=== PATIENT | male | born 2000 | race Caucasian/White ===

== ENCOUNTER 2021-07-11 19:52 | Emergency (ER) | payer BC, OTHER ==
[~2021-07-11] VITALS: Ht 180.3 cm; Wt 64.4 kg
--- NOTE | 2021-07-11 20:04 | ED Fall/Injury ---
General Chief Complaint: Trauma-Non Activation Stated Complaint: LOWER BACK PAIN History of Present Illness Date Seen by Provider: Jul 11, 2021 Time Seen by Provider: 19:58 Initial Comments 20-year-old male presents with mid low back pain. 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 Patient was bucked off his horse and landed flat on his back. He has what he feels like a "mild hot fork in the middle of his back. He denies any numbness, tingling, loss of movement or bowel or bladd er issues. Patient denies any other injury. Allergies and Home Medications Patient Home Medication List Home Medication List Reviewed: Yes Review of Systems Review of Systems Constitutional: no symptoms reported Eyes: No Symptoms Reported Respiratory: no symptoms reported Cardiovascular: no symptoms reported Gastrointestinal: no symptoms reported Genitourinary: no symptoms reported Musculoskeletal: see HPI, back pain Skin: no symptoms reported Psychiatric/Neurological: No Symptoms Reported Physical Exam Vital Signs Vital Signs - First Documented 07/11/21 19:52 Temp 36.6 Pulse 75 Resp 18 B/P (MAP) 116/69 (85) Pulse Ox 100 O2 Delivery Room Air Capillary Refill : Height, Weight, BMI Height: '" Weight: lbs. oz. kg; BMI Method: General Appearance: WD/WN, no apparent distress Neck: non-tender, full range of motion, supple Cardiovascular: normal peripheral pulses, regular rate, rhythm Respiratory: lungs clear, normal breath sounds, no respiratory distress Gastrointestinal: non tender, soft Back: vertebral tenderness (Mild midline tenderness in the lumbar region, no step-off or obvious injury on palpitation) Extremities: normal range of motion, non-tender Neurologic/Psychiatric: alert, normal mood/affect, oriented x 3; No motor weakness, No sensory deficit Skin: normal color, warm/dry Progress/Results/Core Measures Results/Orders My Orders Orders - AFUA LARA DO Ct Head Wo (07/11/21 19:59) Ct Lumbar Spine Wo (07/11/21 20:07) Vital Signs/I&O 07/11/21 19:52 Temp 36.6 Pulse 75 Resp 18 B/P (MAP) 116/69 (85) Pulse Ox 100 O2 Delivery Room Air Progress Progress Note : Progress Note Patient with negative imaging of the lumbar back. Patient no acute fractures. Patient with likely contusion due to the fall. Patient stable on discharge Departure Impression Primary Impression: Lumbar contusion Qualified Codes: S30.0XXA - Contusion of lower back and pelvis, initial encounter Disposition: 01 HOME, SELF-CARE Condition: Stable Departure-Patient Inst. Patient Instructions: Back Precautions, Contusion (DC), Low Back Pain ED Add. Discharge Instructions: Tylenol or ibuprofen as needed for pain 4% topical lidocaine with menthol, cream gel or patch take as directed on package All discharge instructions reviewed with patient and/or family. Voiced understanding. AFUA LARA DO Jul 11, 2021 20:04
--- NOTE | 2021-07-11 20:54 | Diagnostic Imaging Report ---
PROCEDURE: CT lumbar spine without contrast. TECHNIQUE: Multiple contiguous axial images were obtained through the lumbar spine without the use of intravenous contrast. Sagittal and coronal reformations were then performed. Auto Exposure Controls were utilized during the CT exam to meet ALARA standards for radiation dose reduction. INDICATION: Injury with back pain. COMPARISON: None. FINDINGS: There is transitional anatomy with partial sacralization of the L5 segment with a rudimentary L5-S1 disc. Lumbar statures are normal, the alignment anatomic. No lumbar fracture or paraspinal hemorrhage. No hyperdense epidural hematoma. No substantial thoracic spinal canal, neural foraminal or lateral recess stenosis. The pedicles and pars are intact. There is no acute appearing abnormality. IMPRESSION: No lumbar fracture or traumatic malalignment. No significant stenosis. Dictated by: Dictated on workstation # [id number]
[2021-07-11 21:20] VITALS: BP 101/85
== END 2021-07-11 21:20 | disposition home or self-care (01) ==
LOC: ER FS 19:59
DX: S30.0XXA Contusion of lower back and pelvis, initial encounter (principal); V80.010A Animal-rider injured by fall from or being thrown from horse in noncollision accident, initial encounter
CPT/HCPCS: 72131